=== PATIENT | female | born 1990 | race Caucasian/White ===

== ENCOUNTER 2017-04-17 13:51 | Emergency (ER) | payer MEDICAID ==
[~2017-04-17] VITALS: Ht 152.4 cm; Wt 49.0 kg
[2017-04-17 13:59] VITALS: BP 126/79
[2017-04-17] MEDS ORDERED: LIDOCAINE 1% HCL (LOCAL ANESTH.) INJ 20ML MDV IJ ONE (15:00)
[2017-04-17] MEDS ORDERED: TETANUS-DIPTH-ACEL PERTUSSIS 0.5ML SYRG IM ONE (15:00)
[2017-04-17] MEDS ORDERED: NEOMYCIN-BACITRACIN-POLYM UNITDOSE PKG TOP OINT TOP ONE (15:00)
== END 2017-04-17 15:27 | disposition home or self-care (01) ==
LOC: ER 13:51
DX: S61.211A Laceration without foreign body of left index finger without damage to nail, initial encounter (principal); Z23 Encounter for immunization; W45.8XXA Other foreign body or object entering through skin, initial encounter; Y93.89 Activity, other specified; Y92.89 Other specified places as the place of occurrence of the external cause; Y99.8 Other external cause status
CPT/HCPCS: 12001; 90471; 90715; 99283; J2001

== ENCOUNTER 2017-05-29 10:57 | Emergency (ER) | payer MEDICAID ==
[~2017-05-29] VITALS: Ht 165.1 cm; Wt 49.9 kg
[2017-05-29 11:17] VITALS: BP 124/89
[2017-05-29 11:43] LABS: Urine Bilirubin Negative (Negative); Urine Blood Negative /uL (Negative); Urine Color Yellow (Yellow); Urine Glucose Normal (Normal); Urine Ketone Negative (Negative); Urine Mucus FEW (None Seen); Urine Nitrite Negative (Negative); Urine RBC 5 /hpf (0 - 4); Urine Squamous Epithelial Cell FEW /hpf (<5); Urine Urobilinogen Normal (Negative)
== END 2017-05-29 12:27 | disposition home or self-care (01) ==
LOC: ER 10:57
DX: N39.0 Urinary tract infection, site not specified (principal); Z90.710 Acquired absence of both cervix and uterus
CPT/HCPCS: 81001

== ENCOUNTER 2017-07-25 08:23 | Emergency (ER) | payer MEDICAID ==
[~2017-07-25] VITALS: Ht 152.4 cm; Wt 49.9 kg
[2017-07-25 08:53] LABS: Basophils # (auto) 0.1 uL; Eosinophils # (auto) 0.1 uL; Eosinophils % (auto) 0.3 % (0.0-7.0)
[2017-07-25 08:55] LABS: Basophils % (auto) 0.4 % (0.0-2.0); Hematocrit 42.5 % (36.0-46.0); Hemoglobin 13.7 g/dL (12.2-16.2); Lymphocytes # (auto) 1.2 uL; Lymphocytes % (auto) 6.7 % (10.0-50.0); Mean Corpuscular Hemoglobin 26.2 pg (28.0-32.0); Mean Corpuscular Hgb Conc. 32.1 g/dL (32.0-36.0); Mean Corpuscular Volume 81.4 fL (80.0-100.0); Monocytes % (auto) 5.5 % (0.0-12.0); Neutrophils # (auto) 15.7 uL; Neutrophils % (auto) 87.1 % (37.0-80.0); Platelet Count (auto) 429 10^3/uL (140-450); Red Blood Cells 5.23 10^6/uL (4.0-5.20); Red Cell Distribution Width 15.4 % (11.8-14.3)
[2017-07-25] MEDS ORDERED: KETOROLAC TROMETH 30 MG/ML 1ML VIAL IV ONE (09:00)
[2017-07-25 09:11] LABS: Albumin 4.1 g/dL (3.4-5.0); BUN/Creatinine Ratio 12.5; Calcium 9.1 mg/dL (8.5-10.1); Potassium 4.1 mmol/L (3.5-5.1)
[2017-07-25 09:14] LABS: Bilirubin, Total 0.2 mg/dL (0.2-1.0); Total Protein 8.6 g/dL (6.4-8.2)
[2017-07-25] MEDS ORDERED: PIPERACILLIN-TAZOB 3.375GM 50 ML IV ONE (09:15)
[2017-07-25] MEDS ORDERED: PROMETHAZINE HCL 25 MG/ML 1ML IV ONE (09:15)
[2017-07-25 09:53] LABS: Urine Bacteria FEW /hpf (None Seen); Urine Blood TRACE /uL (Negative); Urine Specific Gravity 1.015 (1.001-1.035); Urine WBC 20 /hpf (0 - 5)
[2017-07-25 10:31] VITALS: BP 116/66
== END 2017-07-25 11:46 | disposition home or self-care (01) ==
LOC: ER 08:23
DX: N39.0 Urinary tract infection, site not specified (principal); N20.0 Calculus of kidney; Z90.710 Acquired absence of both cervix and uterus
CPT/HCPCS: 36415; 74176; 80053; 81001; 82150; 83690; 85025; 87040; 94761; 96365; 96375; 99285; J1885; J2543; J2550